=== PATIENT | male | born 1985 | race Caucasian/White ===

== ENCOUNTER 2021-05-13 17:20 | Emergency (ER) | payer OTHER ==
[2021-05-13 17:31] VITALS: BP 114/87; PULSE 97; TEMP 99.1; BMI 24.4
[2021-05-13 18:23] LABS: BASO % 1.2 % (0-2.0); HEMATOCRIT 42.3 % (35.4-49); HEMOGLOBIN 14.5 GM/dL (11.7-16.9); LYMPH % 21.6 % (8-40); MCH 31.9 pg (25.7-33.7); MCHC 34.2 g/dl (32.0-35.9); MEAN CELL VOLUME 93.2 fl (80-96); MEAN PLT VOLUME 8.9 fl (7.5-11.1); MONO % 10.5 % (3.8-10.2); NEUT % 65.7 % (42.8-82.8); PLATELET COUNT 177 10^3/uL (134-434); RBC 4.54 M/mm3 (4.00-5.60); RDW 13.5 % (11.9-15.9); WHITE BLOOD COUNT 6.6 K/mm3 (4.0-10.0)
[2021-05-13 18:33] LABS: BLOOD UREA NITROGEN 11.7 mg/dL (7-18); CALCIUM 8.6 mg/dL (8.5-10.1); MAGNESIUM 2.2 mg/dL (1.8-2.4)
[2021-05-13 18:35] LABS: METHADONE, UR NEGATIVE (NEGATIVE); OPIATES, URI NEGATIVE (NEGATIVE); PHENCYCLIDINE,URINE NEGATIVE (NEGATIVE); URINE AMPHETAMINES NEGATIVE (NEGATIVE); URINE BARBITURATES NEGATIVE (NEGATIVE)
[2021-05-13 18:36] LABS: CREATININE 0.9 mg/dL (0.55-1.3)
[2021-05-13 18:36] LABS: COCAINE, UR NEGATIVE (NEGATIVE); URINE BENZODIAZEPINES NEGATIVE (NEGATIVE)
[2021-05-13 18:37] LABS: PHOSPHOROUS 3.7 mg/dL (2.5-4.9)
[2021-05-13 18:38] LABS: BILIRUBIN,TOTAL 0.5 mg/dL (0.2-1); TOT PROT 7.2 g/dl (6.4-8.2)
== END 2021-05-13 19:35 | disposition home or self-care (01) ==
LOC: JER 17:20
DX: R20.2 Paresthesia of skin (principal)
CPT/HCPCS: 36415; 80053; 80307; 83735; 84100; 84443; 85025; 99284-25